=== PATIENT | female | born 1990 | race Caucasian/White ===

== ENCOUNTER 2016-09-23 18:33 | Emergency (ER) | payer BC, MEDICAID ==
[~2016-09-23] VITALS: Ht 154.9 cm; Wt 63.5 kg
[~2016-09-23 18:33] MED LIST: BIRTH CONTROL PILLS PO
[2016-09-23 18:37] VITALS: BP 125/73; PULSE 84; RESP 16; TEMP 97.6; O2SAT 98
--- NOTE | 2016-09-23 18:41 | NUR ---
Patient triaged and placed in waiting room. VSS and patient appears in no acute distress at this time. Accompanied by FAMILY, awaiting available bed, and MD notified of need for MSE.
--- NOTE | 2016-09-23 19:39 | NUR ---
Patient to ER bed 1 to gown for evaluation. Side rails up.
--- NOTE | 2016-09-23 19:40 | NUR ---
PT IS AOX4, C/O LEFT EAR PAIN X 1 DAY. PT DESCRIBED IT LIKE A PRESSURE AND CAN'T HEAR ON THE AFFECTED AREA WITH PAIN SCALE 5/10.
--- NOTE | 2016-09-23 20:00 | NUR ---
ER at bedside examining patient.
[2016-09-23] MEDS ORDERED: AMOXICILLIN/CLAVULANATE POTASSIUM 875 MG TABLET PO ONE (20:15)
[2016-09-23] MEDS ORDERED: IBUPROFEN 800 MG TABLET PO ONE (20:15)
[2016-09-23 20:20] VITALS: BP 125/73; PULSE 84; RESP 16; TEMP 97.6; O2SAT 98
--- NOTE | 2016-09-23 20:20 | NUR ---
Patient given written and verbal discharge instructions and verbalizes understanding. ER MD discussed with patient the results and treatment provided. Patient in stable condition. ID arm band removed. Rx of MOTRIN 800 MG AND AUGMENTIN 875 given. Patient educated on pain management and to follow up with PMD. Pain Scale 0/10. Opportunity for questions provided and answered.
== END 2016-09-23 20:20 | disposition home or self-care (01) ==
LOC: SED 18:33
DX: H66.92 Otitis media, unspecified, left ear (principal); J01.90 Acute sinusitis, unspecified; H92.01 Otalgia, right ear; R05 Cough
CPT/HCPCS: 81025; 99283